=== PATIENT | male | born 1970 | race African-American/Black ===

== ENCOUNTER 2017-01-01 12:10 | Emergency (ER) | payer BC ==
[~2017-01-01] VITALS: Ht 182.9 cm; Wt 100.0 kg
[2017-01-01] MEDS ORDERED: CEPH-569 PO (12:18)
[2017-01-01] MEDS ORDERED: CEPH-568 PO (12:18)
[2017-01-01] MEDS ORDERED: ATOR20TA PO (12:18)
[2017-01-01] MEDS ORDERED: AMBIEN (12:18)
[2017-01-01] MEDS ORDERED: TRIUMEQ (12:18)
[2017-01-01] MEDS ORDERED: SULF1TAB48 PO (12:18)
[2017-01-01] MEDS ORDERED: ALBUTEROL (0.5%) 2.5MG/0.5ML NEB HHN ONE (19:45)
[2017-01-01 21:35] VITALS: BP 142/82
== END 2017-01-01 21:42 | disposition home or self-care (01) ==
LOC: ER 18:56
DX: J40 Bronchitis, not specified as acute or chronic (principal); Z87.891 Personal history of nicotine dependence
CPT/HCPCS: 71020; 94640; 99284; J7611